=== PATIENT | male | born 1995 | race Caucasian/White ===

== ENCOUNTER 2017-10-31 01:40 | Emergency (ER) | payer BC ==
[2017-10-31] MEDS ORDERED: NS 0.9% 1000 ML* 1,000 ML IV ONE (01:53)
[2017-10-31] MEDS ORDERED: LORazepam INJ* 2 MG/ML 1 ML VIAL IV PUSH ONE (01:54)
[2017-10-31] MEDS ORDERED: Aspirin 81 mg CHEW TAB* 81 MG TAB.CHEW PO ONE (01:54)
[2017-10-31 02:11] LABS: ABS Basophils 0 10^3/ul (0-0.2); ABS Eosinophils 0 10^3/ul (0-0.6); ABS Lymphocytes 1.2 10^3/ul (1.0-4.8); ABS Monocytes 0.4 10^3/ul (0-0.8); ABS Neutrophils 6.4 10^3/ul (1.5-7.7); ABS Nucleated RBC 0 10^3/ul; Eosinophil % 0.1 % (0-6); Hematocrit 41 % (42-52); Hemoglobin 14.6 g/dl (14.0-18.0); Lymphocyte % 15.2 % (25-47); Mean Corpuscular HGB Conc 35 g/dl (31-36); Mean Corpuscular Hemoglobin 32 pg (27-31); Mean Corpuscular Volume 90 fL (80-94); Mean Platelet Volume 7.6 um3 (7.4-10.4); Nucleated Red Blood Cells % 0; Platelet Count 293 10^3/ul (150-450); Red Blood Count 4.56 10^6/ul (4.00-5.40); Red Cell Distribution Width 13 % (10.5-15); White Blood Count 8.1 10^3/ul (3.5-10.8)
--- NOTE | 2017-10-31 02:13 | ED ---
HPI Chest Pain - HPI Summary HPI Summary: This is Noam guthrie documenting for attending physician Eliazar Junior MD. This patient is a 22 year old M presenting to [facility] with a chief complaint of CP that occurred 2 hours [employer]. Pt states he has been drunk since 1600 yesterday and did some cocaine. This induced palpitations, near syncope, and hematemesis. The patient rates the pain 4/10 in severity. Patient reports anxiety but is not on meds. Pt states he has done cocaine in the past but never had sx like this. He states he is currently feeling better in the ED and was anxious after he googled his sx. - History of Current Complaint Chief Complaint: EDChestPainROMI Time Seen by Provider: 10/31/17 02:02 Hx Obtained From: Patient Onset/Duration: Started Hours Ago, Resolved Time of Onset: 00:00 Timing: Lasting Hours Initial Severity: Mild Current Severity: None Pain Intensity: 4 Pain Scale Used: 0-10 Numeric Chest Pain Location: Diffuse Chest Pain Radiates: No Associated Signs and Symptoms: Positive: Other: - near syncope - Allergy/Home Medications Allergies/Adverse Reactions: Allergies Allergy/AdvReac Type Severity Reaction Status Date / Time No Known Allergies Allergy Verified 10/31/17 01:44 Home Medications: Home Medications NK [No Home Medications Reported] 10/31/17 [History Confirmed 10/31/17] PMH/Surg Hx/FS Hx/Imm Hx Endocrine/Hematology History: Denies: Hx Blood Disorders, Hx Systemic Lupus Erythematosus, Hx Thyroid Disease, Hx Unexplained Bleeding, Autoimmune Disease Cardiovascular History: Denies: Hx Congenital Heart Disease, Hx Coronary Artery Disease Respiratory History: Denies: Hx Chronic Obstructive Pulmonary Disease (COPD), Hx Cystic Fibrosis GI History: Denies: Hx Gall Bladder Disease, Hx Gastroesophageal Reflux Disease Musculoskeletal History: Denies: Hx Osteoporosis Infectious Disease History: No Infectious Disease History: Denies: Traveled Outside the [place] in Last 30 Days - Family History Known Family History: Positive: Hypertension Negative: Diabetes, Renal Disease, Respiratory Disease, Seizure Disorder, Blood Disorder - Social History Occupation: Student Alcohol Use: Weekly Hx Substance Use: Yes Substance Use Type: Reports: Cocaine, Marijuana Hx Tobacco Use: Yes Smoking Status (MU): Current Some Day Smoker Review of Systems Positive: Palpitations, Chest Pain Positive: Other - hematemesis. Positive: Syncope - near All Other Systems Reviewed And Are Negative: Yes Physical Exam - Summary Physical Exam Summary: Appearance: Well appearing, no pain distress, appears mildly anxious Skin: warm, dry, reflects adequate perfusion Head/face: normal Eyes: EOMI, PHOEBE ENT: normal Neck: supple, non-tender Respiratory: CTA, breath sounds present Cardiovascular: tachycardia but regular pulses symmetrical Abdomen: non-tender, soft Bowel Sounds: present Musculoskeletal: normal, strength/ROM intact Neuro: normal, sensory motor intact, A&Ox3 Triage Information Reviewed: Yes Vital Signs On Initial Exam: Initial Vitals Temp Pulse Resp BP Pulse Ox 98.5 F 101 20 155/102 100 10/31/17 01:42 10/31/17 01:42 10/31/17 01:42 10/31/17 01:42 10/31/17 01:42 Vital Signs Reviewed: Yes Diagnostics - Vital Signs Vital Signs Temp Pulse Resp BP Pulse Ox 10/31/17 01:42 98.5 F 101 20 155/102 100 - Laboratory Result Diagrams: 10/31/17 02:00 10/31/17 02:00 Lab Statement: Any lab studies that have been ordered have been reviewed, and results considered in the medical decision making process. - Radiology CXR Radiology Interpretation Completed By: ED Physician - no acute findings pending official report. - EKG 0147 Cardiac Rate: Tachycardia EKG Rhythm: Sinus Tachycardia - at [address] Segment: Non-Specific EKG Interpretation: incomplete RBBB and nml axis Re-Evaluation - Re-Evaluation First Eval Re-Evaluation Time: 03:08 Change: Improved Comment: Pt is feeling better. Second Eval Re-Evaluation Time: 04:41 Change: Improved Comment: Pt is sleeping comfortably in the stretcher. Chest Pain Course/Dx - Course Course Of Treatment: 22-year-old male had been using cocaine and drinking alcohol and tobacco palpitations, anxiety and mild degree of chest pain. His blood pressures were elevated. He was treated with Ativan and aspirin and his symptoms quickly resolved. He was held through 2 separate troponins which were nondetectable. He's had no recurrence of chest pain or palpitation. He will follow up closely with [facility] and is encouraged strongly to not use cocaine-related substances. - Chest Pain Differential Diagnosis/HQI/PQRI: Acute MN, ACS, Angina, Lower Respiratory Infection, Other: - Cocaine-related vasospasm, hypertensive emergency - Diagnoses Provider Diagnoses: Cocaine abuse, Heart palpitations, Chest pain - Critical Care Time Critical Care Time: 30-74 min - Critical care time is exclusive of separately billable procedures Discharge - Sign-Out/Discharge Documenting (check all that apply): Patient Departure - Discharge Plan Condition: Improved Disposition: HOME Patient Education Materials: Chest Pain (ED), Cocaine Abuse (ED) Referrals: [facility] [Provider Group] Additional Instructions: Do not use cocaine or related drugs. Call [facility] first thing in the morning for reassessment and also assistance with your drug use. Return with palpitations, chest pain, worse, new symptoms or other concerns as discussed. - Billing Disposition and Condition Condition: IMPROVED Disposition: Home Attestation Statement Scribe Attestation: This is Noam guthrie documenting for attending physician Eliazar Junior MD. User Type: Provider with Scribe Provider Attestation: The documentation recorded by the scribe accurately reflects the service I personally performed and the decisions made by me.
[2017-10-31 02:30] LABS: EGFR Non-African American 90.8 (>60)
[2017-10-31 05:23] VITALS: BP 132/61
--- NOTE | 2017-10-31 07:27 | RAD ---
HISTORY: CP, rapid heart rate, hematemesis COMPARISONS: None VIEWS: 1: frontal portable view of the chest at 2:25 AM FINDINGS: LINES AND TUBES: None. CARDIOMEDIASTINAL SILHOUETTE: The cardiomediastinal silhouette is normal for portable technique. PLEURA: The costophrenic angles are sharp. No pleural abnormalities are noted. LUNG PARENCHYMA: The lungs are clear. ABDOMEN: The upper abdomen is clear. There is no subphrenic gas. BONES AND SOFT TISSUES: No bone or soft tissue abnormalities are noted. IMPRESSION: NO ACTIVE CARDIOPULMONARY DISEASE. R0
== END 2017-10-31 05:25 | disposition home or self-care (01) ==
LOC: ED 01:40
DX: F14.10 Cocaine abuse, uncomplicated (principal); R00.2 Palpitations; R55 Syncope and collapse; R07.9 Chest pain, unspecified; Z72.0 Tobacco use
CPT/HCPCS: 36415; 71045; 80053; 82550; 83605; 84484; 85025; 93005; 96374; 99283; A9270-GY; J2060

== ENCOUNTER 2017-11-07 17:43 | Emergency (ER) | payer BC ==
--- NOTE | 2017-11-07 18:15 | ED ---
HPI Chest Pain - HPI Summary HPI Summary: Pt is a 22 y/o male BIBA sent from [facility] who presents to [facility] c/o intermittent CP. He was here 8 days ago for palpitations, hematemesis, and near- syncope due to cocaine and alcohol use. Pt was worried he was having a heart attack due to tightness in his left arm. He has since had intermittent chest tightness for a week, which went away the past two days. This morning he woke up with the chest tightness again which lasted longer than before. Pt denies any cocaine use since the last episode. He also states he stopped using marijuana one year ago due to similar episodes of chest tightness. Pt denies any asthma. He states he has had anxiety the past few weeks and is aware this may be a panic attack. - History of Current Complaint Chief Complaint: EDChestPainROMI Time Seen by Provider: 11/07/17 17:49 Hx Obtained From: Patient Onset/Duration: Started Days Ago - 8, Still Present Timing: Intermittent Current Severity: Moderate Pain Intensity: 4 Pain Scale Used: 0-10 Numeric Chest Pain Location: Diffuse Character: Tightness Aggravating Factor(s): Alcohol, Other: - Cocaine Alleviating Factor(s): Nothing - Allergy/Home Medications Allergies/Adverse Reactions: Allergies Allergy/AdvReac Type Severity Reaction Status Date / Time No Known Allergies Allergy Verified 11/07/17 17:53 Home Medications: Home Medications Adapalene 0.1 % EX DAILY 11/07/17 [History Confirmed 11/07/17] Clindamycin 1% TOPICAL(NF) 1 applic TOPICAL DAILY 11/07/17 [History Confirmed ] Fiber 1 tab PO DAILY 11/07/17 [History Confirmed 11/07/17] Multivitamin [Men's Multi-Vitamin] 1 each PO DAILY 11/07/17 [History Confirmed 11/07/17] PMH/Surg Hx/FS Hx/Imm Hx Endocrine/Hematology History: Denies: Hx Blood Disorders, Hx Systemic Lupus Erythematosus, Hx Thyroid Disease, Hx Unexplained Bleeding Cardiovascular History: Denies: Hx Congenital Heart Disease, Hx Coronary Artery Disease Respiratory History: Denies: Hx Chronic Obstructive Pulmonary Disease (COPD), Hx Cystic Fibrosis GI History: Denies: Hx Gall Bladder Disease, Hx Gastroesophageal Reflux Disease Musculoskeletal History: Denies: Hx Osteoporosis Infectious Disease History: No Infectious Disease History: Denies: Traveled Outside the [place] in Last 30 Days - Family History Known Family History: Positive: Hypertension Negative: Diabetes, Renal Disease, Respiratory Disease, Seizure Disorder, Blood Disorder - Social History Alcohol Use: Weekly Alcohol Amount: 5x week, 2 heavy days Hx Substance Use: Yes Substance Use Type: Reports: Cocaine Hx Tobacco Use: Yes Smoking Status (MU): Current Some Day Smoker Review of Systems Negative: Fever Positive: Chest Pain - Tightness Positive: Anxious All Other Systems Reviewed And Are Negative: Yes Physical Exam - Summary Physical Exam Summary: Appearance: Well appearing, no pain distress Skin: warm, dry, reflects adequate perfusion Head/face: normal Eyes: EOMI, PHOEBE ENT: normal Neck: supple, non-tender Respiratory: CTA, breath sounds present Cardiovascular: RRR, pulses symmetrical Abdomen: non-tender, soft Bowel: present Musculoskeletal: normal, strength/ROM intact Neuro: normal, sensory motor intact, A&Ox3 Triage Information Reviewed: Yes Vital Signs On Initial Exam: Initial Vitals Temp Pulse Resp BP Pulse Ox 99.1 F 78 16 146/92 98 11/07/17 17:45 11/07/17 17:45 11/07/17 17:45 11/07/17 17:45 11/07/17 17:45 Vital Signs Reviewed: Yes Diagnostics - Vital Signs Vital Signs Temp Pulse Resp BP Pulse Ox 11/07/17 17:51 77 146/92 99 11/07/17 17:50 79 98 11/07/17 17:45 99.1 F 78 16 146/92 98 - Laboratory Result Diagrams: 11/07/17 18:42 11/07/17 18:42 Lab Statement: Any lab studies that have been ordered have been reviewed, and results considered in the medical decision making process. - Radiology CXR Xray Interpretation: No Acute Changes - No acute findings. Pending official radiology report. Radiology Interpretation Completed By: ED Physician - EKG 17:46 Cardiac Rate: NL - 71 bpm EKG Rhythm: Sinus Rhythm EKG Interpretation: No acute changes. Chest Pain Course/Dx - Course Course Of Treatment: Pt is a 22 y/o male BIBA sent from [facility] who presents to [facility] c/o intermittent . He was here 8 days ago for palpitations, hematemesis, and near-syncope due to cocaine and alcohol use. He has since had intermittent chest tightness for a week, which went away the past two days. This morning he woke up with the chest tightness again which lasted longer than before. Pt denies any cocaine use since the last episode. He also states he stopped using marijuana one year ago due to similar episodes of chest tightness. He states he has had anxiety the past few weeks and is aware this may be a panic attack. A physical exam was normal. An EKG revealed normal rate of 71 bpm. Final dx are atypical chest pain and substance abuse. Pt is discharged home and is agreeable with the plan. - Chest Pain Differential Diagnosis/HQI/PQRI: Chest Wall, Lower Respiratory Infection, Other : - anxiety reaction - Diagnoses Provider Diagnoses: Atypical chest pain, Substance abuse Discharge - Sign-Out/Discharge Documenting (check all that apply): Patient Departure - Discharge - Discharge Plan Condition: Stable Disposition: HOME Patient Education Materials: Cocaine Abuse (ED), Abuse of Alcohol (ED), Anxiety (ED) Referrals: [facility] [Outside] - 3 Days Additional Instructions: RETURN TO THE ED WITH ANY NEW OR WORSENING SYMPTOMS. - Billing Disposition and Condition Condition: STABLE Disposition: Home - Attestation Statements Document Initiated by Scribe: Yes Documenting Scribe: Lucy De La Rosa Provider For Whom Scribe is Documenting (Include Credential): Good Romano MD Scribe Attestation: Lucy Barboza scribed for Good Romano MD on 11/07/17 at 2041. Scribe Documentation Reviewed: Yes Provider Attestation: The documentation as recorded by the [email or web address] accurately reflects the service I personally performed and the decisions made by , Good Romano MD
[2017-11-07 18:51] LABS: ABS Basophils 0.1 10^3/ul (0-0.2); ABS Eosinophils 0.1 10^3/ul (0-0.6); ABS Lymphocytes 1.5 10^3/ul (1.0-4.8); ABS Monocytes 0.8 10^3/ul (0-0.8); ABS Neutrophils 11.2 10^3/ul (1.5-7.7); ABS Nucleated RBC 0 10^3/ul; Eosinophil % 0.6 % (0-6); Hematocrit 44 % (42-52); Hemoglobin 15.3 g/dl (14.0-18.0); Lymphocyte % 10.7 % (25-47); Mean Corpuscular HGB Conc 35 g/dl (31-36); Mean Corpuscular Hemoglobin 31 pg (27-31); Mean Corpuscular Volume 91 fL (80-94); Mean Platelet Volume 7.7 um3 (7.4-10.4); Nucleated Red Blood Cells % 0.3; Platelet Count 319 10^3/ul (150-450); Red Cell Distribution Width 13 % (10.5-15); White Blood Count 13.6 10^3/ul (3.5-10.8)
[2017-11-07 19:09] LABS: EGFR Non-African American 102.4 (>60)
[2017-11-07 20:23] VITALS: BP 145/90
--- NOTE | 2017-11-08 07:36 | RAD ---
INDICATION: Panic attacks COMPARISON: October 31, 2017 TECHNIQUE: An AP portable view obtained at 1820 hours is submitted. FINDINGS: Bones/Soft Tissues: There are no acute bony findings. Cardiomediastinal: The cardiomediastinal silhouette is normal. Lungs: There are no infiltrates. Pleura: There are no pleural effusions. Other: None IMPRESSION: NO ACTIVE DISEASE. R0
== END 2017-11-07 20:22 | disposition home or self-care (01) ==
LOC: ED 17:43
DX: R07.89 Other chest pain (principal); F14.10 Cocaine abuse, uncomplicated; Z72.0 Tobacco use
CPT/HCPCS: 36415; 71045; 80053; 83605; 84484; 85025; 93005; 99283

== ENCOUNTER 2018-07-11 05:42 | Emergency (ER) | payer BC ==
[2018-07-11] MEDS ORDERED: LORazepam TAB(*) 1 MG PO ONE (06:12)
--- NOTE | 2018-07-11 06:16 | ED ---
Substance Abuse/Use - HPI Summary HPI Summary: Pt. is a 23 y.o male who presents to the ER for anxiety after drug and ETOH use tonight. Pt. states he was drinking at a bar last night and then went home and did 3 lines of cocaine. Pt. states he then started feeling very anxious and like he was "dying." Pt. denies any falls or injuries. He states he has a hx of anxiety and take lexapro. He sees outpt. psychiatry. Pt. notes chest earlier in the night but currently denies cp, sob, abd. pain, h/a, injury. Pt. denies SI and HI. Symptoms are moderate in severity. No current modifying factors. Pt. otherwise denies past medical hx. This is pt.'s third visit to ED for similar sxs within the past year. - History Of Current Complaint Chief Complaint: EDSubstanceAbuse Stated Complaint: "DRUG INDUCED ANXIETY" PER PT Time Seen by Provider: 07/11/18 06:01 Hx Obtained From: Patient - Allergies/Home Medications Allergies/Adverse Reactions: Allergies Allergy/AdvReac Type Severity Reaction Status Date / Time No Known Allergies Allergy Verified 07/11/18 05:46 Home Medications: Home Medications Lexapro * 40 mg PO DAILY 07/11/18 [History Confirmed 07/11/18] PMH/Surg Hx/FS Hx/Imm Hx Previously Healthy: Yes Endocrine/Hematology History: Denies: Hx Blood Disorders, Hx Systemic Lupus Erythematosus, Hx Thyroid Disease, Hx Unexplained Bleeding Cardiovascular History: Denies: Hx Congenital Heart Disease, Hx Coronary Artery Disease Respiratory History: Denies: Hx Chronic Obstructive Pulmonary Disease (COPD), Hx Cystic Fibrosis GI History: Denies: Hx Gall Bladder Disease, Hx Gastroesophageal Reflux Disease Musculoskeletal History: Denies: Hx Osteoporosis Infectious Disease History: No Infectious Disease History: Denies: Traveled Outside the [place] in Last 30 Days - Family History Known Family History: Positive: Hypertension Negative: Diabetes, Renal Disease, Respiratory Disease, Seizure Disorder, Blood Disorder - Social History Occupation: Student Lives: Dormitory/Roommates Alcohol Use: Weekly Alcohol Amount: 5x week, 2 heavy days Hx Substance Use: Yes Substance Use Type: Reports: Cocaine Hx Tobacco Use: Yes Smoking Status (MU): Current Some Day Smoker Review of Systems Constitutional: Negative Negative: Fever, Chills Positive: Palpitations, Chest Pain Respiratory: Negative Negative: Shortness Of Breath, Cough Gastrointestinal: Negative Negative: Abdominal Pain, Vomiting, Diarrhea Neurological: Negative Positive: Anxious All Other Systems Reviewed And Are Negative: Yes Physical Exam Triage Information Reviewed: Yes Vital Signs On Initial Exam: Initial Vitals Temp Pulse Resp BP Pulse Ox 97.9 F 90 18 176/94 95 07/11/18 05:44 07/11/18 05:44 07/11/18 05:44 07/11/18 05:44 07/11/18 05:44 Vital Signs Reviewed: Yes Appearance: Positive: Well-Appearing - Pt. sitting up in bed in NAD. Anxious. Poor eye contact. Skin: Positive: Warm, Dry Head/Face: Positive: Normal Head/Face Inspection Eyes: Positive: Normal, EOMI, PHOEBE Neck: Positive: Supple. Negative: Nuchal Rigidity Respiratory/Lung Sounds: Positive: Clear to Auscultation, Breath Sounds Present Cardiovascular: Positive: Normal, RRR Musculoskeletal: Positive: Normal, Strength/ROM Intact Neurological: Positive: Normal, Alert, Oriented to Person Place, Time, CN Intact II-III Psychiatric: Positive: Anxious - Sarika Coma Scale Best Eye Response: 4 - Spontaneous Best Motor Response: 6 - Obeys Commands Best Verbal Response: 5 - Oriented Coma Scale Total: 15 Diagnostics - Vital Signs Vital Signs Temp Pulse Resp BP Pulse Ox 07/11/18 05:44 97.9 F 90 18 176/94 95 - Laboratory Result Diagrams: 07/11/18 06:25 07/11/18 06:25 Lab Statement: Any lab studies that have been ordered have been reviewed, and results considered in the medical decision making process. Course/Dx - Course Course Of Treatment: Patient presenting for evaluation of anxiety after using alcohol and cocaine earlier today. He does note that he did have some chest pain earlier in the day but currently does not have chest pain or any other complaints. Patient denies SI or HI. EKG done at 0632 shows a sinus rhythm of 71 bpm, left axis deviation, early repolarization no STEMI, similar to prior tracing. Patient was given a dose of aspirin. Blood work is unremarkable including troponin 2. Chest xray negative for acute findings per radiology. Patient is feeling better after medication. Patient reinterviewed and is still denying suicidal ideations and does not wish for a psychiatric evaluation today. Strongly advised to follow-up with [facility] for further evaluation and help with drug use. To return to the ER if symptoms change or worsen. - Diagnoses Differential Diagnosis/HQI/PQRI: Positive: Anxiety, Drug Abuse, Drug Withdrawal Provider Diagnoses: Substance abuse Discharge - Sign-Out/Discharge Documenting (check all that apply): Patient Departure Patient Received Moderate/Deep Sedation with Procedure: No - Discharge Plan Condition: Improved Disposition: HOME Patient Education Materials: Polysubstance Abuse (ED) Referrals: [facility] [Outside] - As Soon As Possible Additional Instructions: Call [facility] today for a close follow up appointment Avoid drug and alcohol use Return to ER if symptoms change or worsen - Billing Disposition and Condition Condition: IMPROVED Disposition: Home
[2018-07-11 06:42] LABS: ABS Basophils 0 10^3/ul (0-0.2); ABS Eosinophils 0 10^3/ul (0-0.6); ABS Lymphocytes 1.9 10^3/ul (1.0-4.8); ABS Monocytes 0.6 10^3/ul (0-0.8); ABS Neutrophils 6.5 10^3/ul (1.5-7.7); ABS Nucleated RBC 0 10^3/ul; Eosinophil % 0.3 %; Hematocrit 46 % (36-46); Lymphocyte % 20.8 %; Mean Corpuscular HGB Conc 35 g/dL (31-36); Mean Corpuscular Hemoglobin 32 pg (27-31); Mean Corpuscular Volume 91 fL (80-94); Mean Platelet Volume 8.2 fL (7.4-10.4); Nucleated Red Blood Cells % 0; Platelet Count 320 10^3/uL (150-450); Red Blood Count 5.08 10^6 /uL (4.18-5.48); Red Cell Distribution Width 13 % (10.5-15)
[2018-07-11 07:01] LABS: Albumin 4.8 g/dL (3.2-5.2); Albumin/Globulin Ratio 1.7 (1-3); BUN/Creatinine Ratio 13.8 (8-20); Calcium 9.5 mg/dL (8.6-10.3); EGFR African American 142.5 (>60); EGFR Non-African American 117.8 (>60); Globulin 2.9 g/dL (2-4); Magnesium 2.2 mg/dL (1.9-2.7); Potassium 3.8 mmol/L (3.5-5.0); Total Bilirubin 0.4 mg/dL (0.2-1.0); Total Protein 7.7 g/dL (6.4-8.9)
[2018-07-11 07:02] LABS: Troponin I 0.01 ng/mL (<0.04)
[2018-07-11] MEDS ORDERED: Aspirin TAB* 325 MG PO ONE (07:43)
[2018-07-11 10:52] VITALS: BP 146/73
== END 2018-07-11 10:50 | disposition home or self-care (01) ==
LOC: ED 05:42
DX: F14.10 Cocaine abuse, uncomplicated (principal); F10.10 Alcohol abuse, uncomplicated; F17.210 Nicotine dependence, cigarettes, uncomplicated
CPT/HCPCS: 36415; 71045; 80053; 83735; 84484; 85025; 93005; 99283; A9270-GY